=== PATIENT | female | born 1990 | race Caucasian/White ===

== ENCOUNTER 2020-08-28 09:02 | Inpatient (IN) | payer BC ==
[2020-08-28] MEDS ORDERED: TERBUTALINE 1 MG/ML VIAL SQ PRN (10:30)
[2020-08-28] MEDS ORDERED: METHYLERGONOVINE 0.2 MG/ML 1 ML AMP IM PRN (10:30)
[2020-08-28] MEDS ORDERED: OXYTOCIN 30 UNITS/500 ML NS 30 UNIT in SALINE 1 500ML.BAG IV SCH (10:30)
[2020-08-28] MEDS: LACTATED RINGERS 1,000 ML IV SCH ×2 (10:30→11:33)
[2020-08-28] MEDS ORDERED: LIDOCAINE 0.5% (PF) 5 MG/ML (50 ML SDV) SQ PRN (10:30)
[2020-08-28] MEDS ORDERED: CARBOPROST TROMETHAMINE 250 MCG/ML 1 ML AMP IM PRN (10:30)
[2020-08-28] MEDS ORDERED: OXYTOCIN 10 UNIT/ML 1 ML VIAL IM PRN (10:30)
--- NOTE | 2020-08-28 10:50 | P.HPOB ---
History of Present Illness H&P Date: 08/28/20 Chief Complaint: Rupture of membranes This is a 30-year-old 1 woman with an estimated due date of 08/24/2020 based on LMP consistent with first trimester ultrasound. She presents at 40-4/7 weeks' gestation complaining of increasing contractions as well as a gush of fluid at approximately 7 AM. She has had an uncomplicated . Upon arrival to labor and delivery triage rupture of membranes is confirmed and she is 3-4 cm dilated. Yesterday she was 2 cm in the office. She is irregularly rosalind. Laboratory data blood type A+, antibody screen negative, rubella nonimmune, VDRL nonreactive, hepatitis B surface antigen negative, HIV negative, gonorrhea and clinic cultures negative, so free DNA negative, glucose tolerance testing within normal limits, group B strep negative Review of Systems All systems: negative Past Medical History Past Medical History: No Reported History History of Any Multi-Drug Resistant Organisms: None Reported Additional Past Surgical History / Comment(s): [place] teeth Past Anesthesia/Blood Transfusion Reactions: No Reported Reaction Past Psychological History: No Psychological Hx Reported Smoking Status: Never smoker Past Alcohol Use History: None Reported Past Drug Use History: None Reported Medications and Allergies Home Medications Medication Instructions Recorded Confirmed Type Calcium Carbonate [Tums] 500 mg PO TID MDD 1500 mg 08/28/20 08/28/20 History Famotidine [Pepcid] 20 mg PO DAILY MDD 20 mg 08/28/20 08/28/20 History Pnv,Calcium 72/Iron/Folic Acid 1 each PO DAILY MDD 1 tab 08/28/20 08/28/20 History [ Plus Tablet] Allergies Allergy/AdvReac Type Severity Reaction Status Date / Time No Known Allergies Allergy Verified 08/28/20 10:26 Exam Intake and Output 08/27/20 08/28/20 08/28/20 22:59 06:59 14:59 Other: Weight 77.111 kg Patient is sitting at the bedside having epidural placed upon my initial assessment. heart tones are category 1 Assessment and Plan (1) 40 weeks gestation of Current Visit: Yes Status: Acute Code(s): Z3A.40 - 40 WEEKS GESTATION OF SNOMED Code(s): 67188294 (2) Spontaneous onset of labor Current Visit: Yes Status: Acute Code(s): UVX0682 - SNOMED Code(s): 37892034 (3) Spontaneous rupture of membranes Current Visit: Yes Status: Acute Code(s): YUU3292 - SNOMED Code(s): 602345221 (4) Rubella non-immune status, antepartum Current Visit: Yes Status: Acute Code(s): O99.891 - OTH DISEASES AND CONDITIONS COMPLICATING ; Z28.3 - UNDERIMMUNIZATION STATUS SNOMED Code(s): 476778025 Plan: 30-year-old 1 at 40-4/7 weeks' gestation presenting with confirmed rupture of membranes and active labor. status is category 1. She is group B strep negative. She is receiving her epidural. Anticipate normal spontaneous vaginal delivery.
[2020-08-28] MEDS ORDERED: ROPIVACAINE 100 MG, fentaNYL (PF). 200 MCG in SODIUM CHLORIDE 0.9% 76 ML EPIDURAL ONE (10:55)
[2020-08-28 11:03] LABS: Basophils % (A) 0 %; Eosinophils % (A) 0 %; HGB 13.4 gm/dL (11.4-16.0); Lymphocytes # (A) 1.5 k/uL (1.0-4.8); Lymphocytes % (A) 9 %; MCH 28.2 pg (25.0-35.0); MCHC 33.5 g/dL (31.0-37.0); MCV 84.3 fL (80.0-100.0); Monocytes # (A) 0.5 k/uL (0-1.0); Monocytes % (A) 3 %; Neutrophils # (A) 14.6 k/uL (1.3-7.7); Neutrophils % (A) 88 %; Platelet Count 295 k/uL (150-450); RBC 4.75 m/uL (3.80-5.40); RDW 13.7 % (11.5-15.5); WBC 16.6 k/uL (3.8-10.6)
[2020-08-28 11:14] LABS: ALT 16 U/L (4-34); AST 41 U/L (14-36); African American GFR (CKD) >90 (>60 ml/min/1.73 sqM); Blood Urea Nitrogen 9 mg/dL (7-17); LDH 803 U/L (313-618); Non-African American GFR(CKD) >90 (>60 ml/min/1.73 sqM); Uric Acid 6.2 mg/dL (3.7-7.4)
[2020-08-28 12:08] LABS: Appearance,Urine Clear (Clear); Bilirubin,Urine Negative (Negative); Blood,Urine Negative (Negative); Color,Urine Yellow; Glucose,Urine (UA) Negative (Negative); Ketones,Urine Negative (Negative); Leukocyte Esterase,Urine Negative (Negative); Nitrite,Urine Negative (Negative); PH, Urine 5.5 (5.0-8.0); Protein,Urine Trace (Negative); Specific Gravity,Urine 1.019 (1.001-1.035); Urobilinogen,Urine <2.0 mg/dL (<2.0)
[2020-08-28 15:27] LABS: Creatinine,Urine Random 140.6 mg/dL; Protein/Creatinine Ratio,Urine 0.107
[2020-08-28] MEDS ORDERED: MEASLES-MUMPS-RUBELLA VACC/PF 12,500 UNIT/0.5 ML VIAL SQ ONE (18:04)
[2020-08-28] MEDS ORDERED: diphenhydrAMINE 50 MG/ML 1 ML VIAL IVP PRN ×2 (18:04)
[2020-08-28] MEDS ORDERED: HYDROcodone/APAP 5-325MG 1 EACH TAB PO PRN (18:04)
[2020-08-28] MEDS ORDERED: BENZOCAINE/MENTHOL SPRAY 1 GM/SPRAY AEROSOL TOPICAL PRN (18:04)
[2020-08-28] MEDS ORDERED: ZOLPIDEM 5 MG TAB PO PRN (18:04)
[2020-08-28] MEDS ORDERED: SIMETHICONE 80 MG CHEWABLE PO PRN (18:04)
[2020-08-28] MEDS ORDERED: diphenhydrAMINE 50 MG CAP PO PRN (18:04)
[2020-08-28] MEDS ORDERED: HYDROCORTISONE 2.5% RECTAL CREAM 30 GM TUBE RECTAL PRN (18:04)
[2020-08-28] MEDS ORDERED: diphenhydrAMINE 25 MG CAP PO PRN (18:04)
[2020-08-28] MEDS ORDERED: ACETAMINOPHEN TAB 325 MG TAB PO PRN (18:04)
[2020-08-28] MEDS ORDERED: LANOLIN CREAM 5 GM TUBE TOPICAL PRN (18:04)
--- NOTE | 2020-08-28 18:04 | P.PROBDLV ---
Vaginal Delivery Note - . Vaginal Delivery Note: Findings: Male infant in the vertex left occiput anterior position with nuchal cord 2. Apgars of 9 at 1 minute and 9 at 5 minutes. Weight 8 lbs. 3 oz., 3710 g. Third-degree perineal laceration. EBL 250 mL's. Delivery summary: This is a 30-year-old 1 para 0 woman admitted at 40- 4/7 weeks' gestation with spontaneous rupture of membranes and early active labor. She was admitted on and Pitocin augmentation was initiated. She received an epidural anesthetic. She had approximately 10 hour first stage of labor to reach complete cervical dilation. She began pushing and had an approximately 70 minute second stage of labor. With she was reposit ioned, prepped and draped in the modified Radha position. With additional maternal effort the head delivered from the left occiput anterior position. Nuchal cord 2 was reduced. The anterior followed by the posterior shoulders were delivered without difficulty and the rest the was delivered onto the field. The nose and mouth were bulb suctioned. The baby was placed on the maternal abdomen. The perineum was inspected and noted to be a third-degree laceration. This was infused with lidocaine. The perirectal muscular capsular was reapproximated in interrupted fashion with [id number] sutures per protocol. The remaining second-degree perineal laceration was then closed overtop in the usual fashion. An intact three-vessel cord placenta was then expressed after an approximately 10 minute third stage of labor. The rest of the vagina was inspected no further lacerations were noted. The uterus was massaged and noted to be firm at the level of the umbilicus. Both mother and were doing well post delivery in the room. All counts were correct.
[2020-08-28] MEDS: SENNOSIDES-DOCUSATE SODIUM 1 EACH TAB PO SCH (20:50)
[2020-08-28] MEDS: IBUPROFEN 600 MG TAB PO SCH (20:50)
[2020-08-28 23:35] VITALS: RESP 16
[2020-08-29] MEDS: IBUPROFEN 600 MG TAB PO SCH ×3 (04:17→14:59)
[2020-08-29 07:00] LABS: Basophils % (A) 0 %; Eosinophils % (A) 0 %; HCT 29.2 % (34.0-46.0); Lymphocytes # (A) 1.6 k/uL (1.0-4.8); Lymphocytes % (A) 9 %; MCHC 34.1 g/dL (31.0-37.0); Mean Platelet Volume 8.8; Monocytes # (A) 0.7 k/uL (0-1.0); Monocytes % (A) 4 %; Neutrophils # (A) 15.3 k/uL (1.3-7.7); Neutrophils % (A) 87 %; Platelet Count 219 k/uL (150-450); RBC 3.44 m/uL (3.80-5.40); WBC 17.7 k/uL (3.8-10.6)
[2020-08-29] MEDS: SENNOSIDES-DOCUSATE SODIUM 1 EACH TAB PO SCH (07:49)
[2020-08-29 08:26] VITALS: BP 121/80; PULSE 75; TEMP 98.4
--- NOTE | 2020-08-29 16:18 | P.DS ---
Providers Date of admission: 08/28/20 09:55 Expected date of discharge: 08/29/20 Attending physician: Shahla Shea Primary care physician: Stated None - Discharge Diagnosis(es) (1) 40 weeks gestation of Current Visit: Yes Status: Acute (2) Spontaneous onset of labor Current Visit: Yes Status: Acute (3) Spontaneous rupture of membranes Current Visit: Yes Status: Acute (4) Rubella non-immune status, antepartum Current Visit: Yes Status: Acute (5) Perineal laceration with delivery, third degree Current Visit: Yes Status: Acute (6) Nuchal cord Current Visit: Yes Status: Acute (7) Normal spontaneous vaginal delivery Current Visit: Yes Status: Acute Hospital Course: This is a 30-year-old 1 now para 1 woman who was admitted at 40-4/7 weeks' gestation with spontaneous rupture of membranes and active labor. She was admitted with confirmation of rupture. She received an epidural anesthetic and Pitocin augmentation of labor. She progressed to complete cervical dilation and went on to deliver a live born male infant over a third-degree perineal laceration. There was a nuchal cord 2. The patient's course was unremarkable. By day #1 she was ambulating and voiding without difficulty. Her lochia was moderate. She is breast-feeding successfully. Her vital signs were stable and she was tolerating a general diet. She was therefore discharged home on day #1 with routine instructions for care and follow-up. Procedures: Normal spontaneous vaginal delivery, repair of third-degree perineal laceration Patient Condition at Discharge: Good Plan - Discharge Summary New Discharge Prescriptions: No Action Famotidine [Pepcid] 20 mg PO DAILY MDD 20 mg Calcium Carbonate [Tums] 500 mg PO TID MDD 1500 mg Pnv,Calcium 72/Iron/Folic Acid [ Plus Tablet] 1 each PO DAILY MDD 1 tab Discharge Medication List Calcium Carbonate [Tums] 500 mg PO TID MDD 1500 mg 08/28/20 [History] Famotidine [Pepcid] 20 mg PO DAILY MDD 20 mg 08/28/20 [History] Pnv,Calcium 72/Iron/Folic Acid [ Plus Tablet] 1 each PO DAILY MDD 1 tab 08/28/20 [History] Follow up Appointment(s)/Referral(s): Shahla Shea MD [STAFF PHYSICIAN] - 6 Weeks Activity/Diet/Wound Care/Special Instructions: Follow-up in the office in 6 weeks . Call with any concerning signs or symptoms including heavy vaginal bleeding, severe abdominal pain, fever greater than 101, swelling or redness of the lower extremities, foul vaginal discharge, or signs of depression. Nothing in the vagina for 6 weeks after delivery, specifically no intercourse. Discharge Disposition: HOME SELF-CARE
== END 2020-08-29 18:30 | disposition home or self-care (01) | DRG 768 ==
LOC: FBPOP 09:02 → 4FBP 09:55
PROVIDERS: ADMIT Obstetrics & Gynecology; ATTEND Obstetrics & Gynecology
PROC: 10E0XZZ Delivery of Products of Conception, External Approach (ICD-10-PCS; principal; 2020-08-28)
PROC: 0DQR0ZZ Repair Anal Sphincter, Open Approach (ICD-10-PCS; 2020-08-28)
DX: O69.81X0 Labor and delivery complicated by cord around neck, without compression, not applicable or unspecified (principal); Z37.0 Single live birth; O70.20 Third degree perineal laceration during delivery, unspecified; Z28.3 Underimmunization status; Z3A.40 40 weeks gestation of pregnancy
CPT/HCPCS: 59025; 81003; 81050; 82565; 82570; 83615; 84156; 84450; 84460; 84520; 84550; 85025; 86850; 86900; 86901; 90707; 99213

== ENCOUNTER 2022-12-25 06:10 | Inpatient (IN) | payer BC ==
[2022-12-25] MEDS ORDERED: miSOPROStoL 200 MCG TAB PO PRN (06:24)
[2022-12-25] MEDS ORDERED: METHYLERGONOVINE 0.2 MG/ML 1 ML AMP IM PRN (06:24)
[2022-12-25] MEDS ORDERED: TRANEXAMIC 1,000 MG/100ML-NACL 1,000 MG in EMPTY BAG 1 BAG IV PRN (06:24)
[2022-12-25] MEDS ORDERED: OXYTOCIN 10 UNIT/ML 1 ML VIAL IM PRN (06:24)
[2022-12-25] MEDS ORDERED: CARBOPROST TROMETHAMINE 250 MCG/ML 1 ML AMP IM PRN (06:24)
[2022-12-25] MEDS ORDERED: TERBUTALINE 1 MG/ML VIAL SQ PRN (06:24)
[2022-12-25] MEDS ORDERED: LIDOCAINE 0.5% (PF) 5 MG/ML (50 ML SDV) SQ PRN (06:24)
[2022-12-25] MEDS ORDERED: OXYTOCIN 30 UNITS/500 ML NS 30 UNIT in SALINE 1 500ML.BAG IV SCH (06:30)
[2022-12-25] MEDS: LACTATED RINGERS 1,000 ML IV SCH ×2 (06:59→11:12)
[2022-12-25 07:22] LABS: Basophils % (A) 0 %; Eosinophils # (A) 0.1 k/uL (0-0.7); Eosinophils % (A) 1 %; Lymphocytes # (A) 1.8 k/uL (1.0-4.8); Lymphocytes % (A) 20 %; MCH 27.9 pg (25.0-35.0); MCHC 32.4 g/dL (31.0-37.0); Mean Platelet Volume 7.8; Monocytes # (A) 0.4 k/uL (0-1.0); Monocytes % (A) 4 %; Neutrophils # (A) 6.8 k/uL (1.3-7.7); Neutrophils % (A) 74 %; Platelet Count 266 k/uL (150-450); RDW 14.5 % (11.5-15.5); WBC 9.2 k/uL (3.8-10.6)
[2022-12-25] MEDS ORDERED: ROPIVACAINE 5 MG/ML 30 ML VIAL ONE (11:16)
[2022-12-25] MEDS ORDERED: fentaNYL (PF) 50 MCG/ML 5 ML AMP ONE (11:16)
[2022-12-25] MEDS ORDERED: SODIUM CHLORIDE 0.9% 250 ML BAG ONE (11:16)
--- NOTE | 2022-12-25 14:27 | P.HPOB ---
History of Present Illness H&P Date: 12/25/22 Chief Complaint: Polyhydramnios This is a 32 year old 2 para 1001 woman who is admitted at 39 weeks gestation for induction of labor secondary to polyhydramnios. She has had reassuring testing however BILL has been greater than 30 cm. She is therefore admitted for induction of labor. Her has otherwise been uncomplicated. She does have a history of maternal aunt depression. Obstetric history: 2020 at term Laboratory data: Blood type A positive, antibody screen negative, rubella immune, VDRL nonreactive, hep Janis surface antigen negative, HIV negative, gonorrhea and clinic cultures negative, group B strep negative. Review of Systems All systems: negative Past Medical History Past Medical History: No Reported History, GERD/Reflux History of Any Multi-Drug Resistant Organisms: None Reported Past Surgical History: No Surgical Hx Reported Additional Past Surgical History / Comment(s): [place] teeth Past Anesthesia/Blood Transfusion Reactions: No Reported Reaction Past Psychological History: Depression Additional Psychological History / Comment(s): hx of PPD with 1st baby Smoking Status: Never smoker Past Alcohol Use History: None Reported Past Drug Use History: None Reported - Past Family History Father Family Medical History: No Reported History Mother Family Medical History: COPD Medications and Allergies Home Medications Medication Instructions Recorded Confirmed Type Calcium Carbonate [Tums] 500 mg PO TID PRN MDD 1500 mg 08/28/20 12/25/22 History Ferrous Sulfate [Feosol] 325 mg PO DAILY 12/25/22 12/25/22 History Vit No.179/Iron/Folic 1 each PO DAILY 12/25/22 12/25/22 History [ Tablet] Sertraline [Zoloft] 25 mg PO DAILY 12/25/22 12/25/22 History Allergies Allergy/AdvReac Type Severity Reaction Status Date / Time No Known Allergies Allergy Verified 12/25/22 06:23 Exam Vital Signs Temp Pulse Resp BP 12/25/22 07:18 96.4 F L 66 17 122/83 Intake and Output 12/24/22 12/25/22 12/25/22 22:59 06:59 14:59 Other: Weight 102.058 kg 102.058 kg On admission cervix is 4 cm dilated 50% effaced and the vertex high with bulging membranes. Artificial rupture of membranes is undertaken and copious clear fluid is noted. With hand in the vagina the head is guided into the pelvis. heart tones are reassuring in category 1. Results Result Diagrams: 12/25/22 06:55 Assessment and Plan (1) Polyhydramnios Current Visit: Yes Status: Acute Code(s): O40.9XX0 - POLYHYDRAMNIOS, UNSP TRIMESTER, NOT APPLICABLE OR UNSP SNOMED Code(s): 79357768 (2) 39 weeks gestation of Current Visit: Yes Status: Acute Code(s): Z3A.39 - 39 WEEKS GESTATION OF SNOMED Code(s): 95712407 Plan: 32-year-old 2 para 1001 woman admitted at 39 weeks gestation for frank ction of labor secondary to polyhydramnios. She is group B strep negative and Rh+. May have an epidural anesthetic upon request. status currently reassuring. Anticipate normal spontaneous vaginal delivery.
[2022-12-25] MEDS ORDERED: ZOLPIDEM 5 MG TAB PO PRN (14:29)
[2022-12-25] MEDS ORDERED: diphenhydrAMINE 50 MG CAP PO PRN (14:29)
[2022-12-25] MEDS ORDERED: ACETAMINOPHEN TAB 325 MG TAB PO PRN (14:29)
[2022-12-25] MEDS ORDERED: diphenhydrAMINE 50 MG/ML 1 ML VIAL IVP PRN ×2 (14:29)
[2022-12-25] MEDS ORDERED: LANOLIN CREAM 5 GM TUBE TOPICAL PRN (14:29)
[2022-12-25] MEDS ORDERED: diphenhydrAMINE 25 MG CAP PO PRN (14:29)
[2022-12-25] MEDS ORDERED: HYDROCORTISONE 2.5% RECTAL CREAM 30 GM TUBE RECTAL PRN (14:29)
[2022-12-25] MEDS ORDERED: BENZOCAINE/MENTHOL SPRAY 1 GM/SPRAY AEROSOL TOPICAL PRN (14:29)
[2022-12-25] MEDS ORDERED: SIMETHICONE 80 MG CHEWABLE PO PRN (14:29)
--- NOTE | 2022-12-25 14:29 | P.PROBDLV ---
Vaginal Delivery Note - . Vaginal Delivery Note: Findings: Female in the vertex presentation with Apgars of 9 at 1 minute and 10 at 5 minutes weighing 7 lbs. 15 oz., 3600 g. Small second-degree perineal laceration. Intact, three-vessel cord placenta. EBL approximately 100 mL's. Delivery summary: This is a 32-year-old 2 para 1001 woman who is admitted at 39 weeks gestation for induction of labor secondary to polyhydramnios. Following admission she was 4 cm dilated and she underwent artificial rupture of membranes. Copious clear fluid was noted. She Pitocin was continued per protocol and she did ultimately receive an epidural anesthetic. She reached complete cervical dilation after an approximately 5 hour first stage of labor. She was and was repositioned, prepped and draped in the dorsal modified Radha position. With additional maternal effort 1 the head delivered from the left occiput anterior position. Nose and mouth were bulb suctioned and the rest the infant was delivered without difficulty onto the field. The nose and mouth were further bulb suctioned on and the infant was placed on the maternal abdomen. The cord was clamped and cut. Apgars were 9 at 1 minute and 10 at 5 minutes. An intact, three-vessel cord placenta was expressed with the use of Pitocin in the third stage. Shallow second-degree perineal laceration was repaired with 3-0 Vicryl suture in the usual fashion. The rest of the vagina was inspected and no further lacerations were noted. The uterus was massaged and noted to be firm at the level of the umbilicus. All counts were correct. Both mother and infant were doing well post delivery in the room.
[2022-12-25] MEDS: IBUPROFEN 600 MG TAB PO PRN ×2 (15:38→23:56)
[2022-12-25] MEDS: SENNOSIDES-DOCUSATE SODIUM 1 EACH TAB PO SCH (20:04)
[2022-12-26 06:53] LABS: Basophils % (A) 0 %; Eosinophils # (A) 0.1 k/uL (0-0.7); Eosinophils % (A) 1 %; HGB 11.8 gm/dL (11.4-16.0); Lymphocytes # (A) 1.8 k/uL (1.0-4.8); Lymphocytes % (A) 13 %; MCHC 31.8 g/dL (31.0-37.0); Mean Platelet Volume 7.6; Monocytes # (A) 0.5 k/uL (0-1.0); Monocytes % (A) 4 %; Neutrophils # (A) 10.8 k/uL (1.3-7.7); Neutrophils % (A) 81 %; Platelet Count 262 k/uL (150-450); RDW 14.4 % (11.5-15.5); WBC 13.4 k/uL (3.8-10.6)
[2022-12-26] MEDS: IBUPROFEN 600 MG TAB PO PRN (08:12)
[2022-12-26] MEDS: SENNOSIDES-DOCUSATE SODIUM 1 EACH TAB PO SCH (08:13)
[2022-12-26 08:54] VITALS: BP 116/78; PULSE 68; RESP 16; TEMP 98.2
[2022-12-26] MEDS ORDERED: SERTRALINE 50 MG TAB PO SCH (09:00)
--- NOTE | 2022-12-26 09:22 | P.DS ---
Providers Date of admission: 12/25/22 06:10 Expected date of discharge: 12/26/22 Attending physician: Shahla Shea Primary care physician: Stated None - Discharge Diagnosis(es) (1) Obstetric vaginal laceration with second degree perineal laceration Current Visit: Yes Status: Acute (2) 39 weeks gestation of Current Visit: Yes Status: Acute (3) Polyhydramnios Current Visit: Yes Status: Acute (4) Normal spontaneous vaginal delivery Current Visit: No Status: Acute Hospital Course: 32-year-old G2 now P2 that presented to labor and delivery at 39-0/7 weeks for induction of labor secondary to polyhydramnios. Patient had been receiving routine care with the diagnosis of polyhydramnios and an BILL of 30. Patient had reassuring testing throughout the third trimester. Patient was admitted and Pitocin induction of labor was begun per hospital protocol. Amniotomy was performed and clear fluid was obtained. Patient progressed through labor eventually becoming uncomfortable and requesting epidural placement. Epidural was placed without difficulty by the anesthesia department. Patient progressed to complete began pushing and had a normal spontaneous vaginal delivery of a viable female at 1410, weight of 7 lbs. 14 oz., Apgars of 9 and 10 at one and 5 minutes respectively. Patient did sustain a second-degree vaginal laceration during delivery this was repaired in the usual fashion. Patient's course has been uneventful. On this day #1 she is ambulating and voiding without difficulty. She is tolerating a regular diet without nausea or vomiting. She states her pain is well-controlled. She would like discharge home at 24 hours if possible. Patient Condition at Discharge: Good Plan - Discharge Summary New Discharge Prescriptions: No Action Calcium Carbonate [Tums] 500 mg PO TID PRN MDD 1500 mg PRN Reason: Heartburn Vit No.179/Iron/Folic [ Tablet] 1 each PO DAILY Ferrous Sulfate [Feosol] 325 mg PO DAILY Sertraline [Zoloft] 25 mg PO DAILY Discharge Medication List Calcium Carbonate [Tums] 500 mg PO TID PRN MDD 1500 mg 08/28/20 [History] Ferrous Sulfate [Feosol] 325 mg PO DAILY 12/25/22 [History] Vit No.179/Iron/Folic [ Tablet] 1 each PO DAILY 12/25/22 [History] Sertraline [Zoloft] 25 mg PO DAILY 12/25/22 [History] Follow up Appointment(s)/Referral(s): Shahla Shea MD [STAFF PHYSICIAN] - 6 Weeks Patient Instructions/Handouts: Vaginal Delivery (DC), Vaginal Delivery (GEN) Activity/Diet/Wound Care/Special Instructions: No tub baths or intercourse until 6 weeks . bleeding questions are reviewed. Patient is to call the office and make a routine visit at 6 weeks. Should she have any concerns prior to this visit she is urged call the office. Discharge Disposition: HOME SELF-CARE
== END 2022-12-26 16:02 | disposition home or self-care (01) | DRG 807 ==
LOC: 4FBP 06:10 → MERGE 06:30
PROVIDERS: ADMIT Obstetrics & Gynecology; ATTEND Obstetrics & Gynecology
PROC: 10E0XZZ Delivery of Products of Conception, External Approach (ICD-10-PCS; principal; 2022-12-25)
PROC: 0KQM0ZZ Repair Perineum Muscle, Open Approach (ICD-10-PCS; 2022-12-25)
PROC: 10907ZC Drainage of Amniotic Fluid, Therapeutic from Products of Conception, Via Natural or Artificial Opening (ICD-10-PCS; 2022-12-25)
PROC: 3E033VJ Introduction of Other Hormone into Peripheral Vein, Percutaneous Approach (ICD-10-PCS; 2022-12-25)
DX: O40.3XX0 Polyhydramnios, third trimester, not applicable or unspecified (principal); Z37.0 Single live birth; O70.1 Second degree perineal laceration during delivery; O99.344 Other mental disorders complicating childbirth; F32.A Depression, unspecified; Z3A.39 39 weeks gestation of pregnancy; Z79.899 Other long term (current) drug therapy
CPT/HCPCS: 85025; 86850; 86900; 86901